=== PATIENT | female | born 2000 | race Caucasian/White ===

== ENCOUNTER 2021-11-22 13:51 | Emergency (ER) | payer OTHER, SELFPAY ==
[2021-11-22 13:52] VITALS: BP 96/46; PULSE 54; RESP 12; TEMP 35.8; O2SAT 95; BMI 23.2
--- NOTE | 2021-11-22 14:09 | EDS_ITS ---
HPI HPI - GI History of Present Illness Chief Complaint: Abd Pain Informant: patient Abdominal Pain/Flank Pain Onset: Today (JPTA, around 45 min ago) Context: Gradual Onset Timing: Continuous and Waxes and wanes Quality: - (pain) Location: Diffuse (across periumbilical abd) Current Severity: Mild Maximum Severity: Severe Worsened by: Nothing Relieved by: Nothing Nausea/Vomiting/Emesis GI Symptom: Negative for Nausea and Vomiting Diarrhea/Melena/Hematochezia GI Symptom: Positive for - (hard stool today); Negative for Diarrhea, Melena and Hematochezia Associated Symptoms Associated Symptoms: Negative for Dysuria, Frequency, Hematuria and Urgency Narrative Narrative: Patient was walking in a grocery store and started having periumbilical bilateral abdominal discomfort, felt like she needed to go to the bathroom. She went to have a bowel movement, it was hard, she had to bear down to get it out, subsequently after this, the pain started getting worse to the point of being in severe. She denies any near syncope but she felt like she needed to get down in the position. She did not fall, she denies any nausea or vomiting, she denies any bright red blood per rectum or mucus. No history of any GI problems, and no history of any abdominal surgeries but today she started for the first day oxybutynin because she has a history of urinary frequency and knows he can cause constipation. She states now her abdominal pain is barely there and very mild in the periumbilical area. She noticed no bulges/hernias at this time. PFSH PFSH Medical History no medical history no medical history Home Medications dicyclomine 20 mg PO Q8H PRN PRN #12 capsule 11/22/21 [Rx Last Taken Unknown] norgestimate-ethinyl estradiol [Sprintec (28)] 1 tab PO DAILY 11/22/21 [History Last Taken Unknown] oxybutynin chloride 5 mg PO DAILY 11/22/21 [History Last Taken Unknown] Allergy/AdvReac Type Severity Reaction Status Date / Time No Known Allergies Allergy Verified 11/22/21 13:52 Surgical History no surgical history no surgical history Social History Smoking Status: Never smoker ROS ROS ED Constitutional Constitutional ED: Denies chills or fever(s) Eyes Eyes: Denies change in vision or diplopia ENT ENT ED: Denies rhinorrhea or sore throat Cardiovascular Cardiovascular: Denies chest pain or palpitations Respiratory/Chest Respiratory/Chest: Denies cough or dyspnea Gastrointestinal Gastrointestinal: Reports as per HPI, abdominal pain and constipation; Denies diarrhea, hematochezia, melena, nausea or vomiting Genitourinary Genitourinary ED: Reports LMP (females 10-50) Details: Comment: (2 weeks ago usu ally regular) and urinary frequency; Denies dysuria, hematuria or vaginal bleeding Musculoskeletal Musculoskeletal: Denies back pain or neck pain Integumentary Denies abscess or rash Neurologic Neurologic: Denies headache(s), paresthesias or weakness Psychiatric Psychiatric: Denies anxiety or suicidal thoughts EXAM Physical Exam Const Vital Signs: 11/22/21 13:52 11/22/21 14:15 11/22/21 16:17 Temperature 96.5 F L Temperature Source Temporal Pulse Rate 54 L 48 L 65 Respiratory Rate 12 16 16 Blood Pressure 96/46 L 100/52 L 99/48 L Blood Pressure Mean 62 68 65 Pulse Ox 95 100 98 Oxygen Delivery Method Room Air Room Air Room Air Positive well nourished and well developed Constitutional Narrative: Well-appearing, conversive in full sentences, no distress General Appearance ED: well developed and NAD HEENT Reports moist mucous membranes normocephalic and atraumatic Eyes PERRL and EOMs intact bilaterally Neck full ROM and supple Resp normal respiratory effort and clear to auscultation bilaterally Cardio regular rate, regular rhythm and no murmurs Rate: Negative for bradycardia or tachycardic GI non-distended GI Narrative: Very mild periumbilical tenderness without any quadrant tenderness. No umbilical tenderness or hernia palpable. No guarding or rebound tenderness anywhere. Auscultation: normoactive bowel sounds Palpation: soft Speculum Exam - Vagina: Negative for vaginal bleeding Back/Spine no CVA tenderness General Back: other FROM Extremity normal to inspection General Extremety ED: Negative for edema, pulses abnormal or tenderness General Extremity: Negative for edema or pulses abnormal Neuro oriented x3, CN's II-XII intact bilaterally and no sensory deficits noted Sensorium / Orientation: awake and alert Motor Exam: strength 5/5 throughout Skin no rashes or lesions noted and no wounds MDM MDM MDM Narrative Medical decision making narrative: Basic labs were obtained in addition to lipase and liver enzymes, urine, and . Everything normal except for mild prerenal azotemia, which I think is incidental and not related. She was given some oral dicyclomine, her pain did not return and she was asymptomatic on reevaluation. Reexamined her abdomen which is completely nontender. I reassured her. I think this was some functional intestinal pain that would yield negative imaging if it were indicated, which I do not think it is. It could be related to constipation that could be a side effect of the new medication she just started. I gave her a prescription for dicyclomine to use as needed, and advised to follow-up with her doctor if she has recurrent episodes. They are comfortable with that plan we discussed reasons to return. Lab Data Attestation: I reviewed the patient's lab results. Labs: Laboratory Results - last 24 hr 11/22/21 11/22/21 11/22/21 14:25 14:25 14:30 WBC 7.9 RBC 4.07 L Hgb 12.4 Hct 37.6 MCV 92.4 MCH 30.5 MCHC 33.0 RDW Std Deviation 41.1 RDW Coeff of Marlys 12.1 Plt Count 252 MPV 9.7 Immature Gran % (Auto) 0.400 Neut % (Auto) 71.0 H Lymph % (Auto) 25.2 Elliott % (Auto) 2.7 Eos % (Auto) 0.3 Baso % (Auto) 0.4 Absolute Neuts (auto) 5.6 Absolute Lymphs (auto) 1.98 Nucleated RBC % 0 Sodium 137 Potassium 4.1 Chloride 104 Carbon Dioxide 26.0 Anion Gap 7 BUN 24 H Creatinine 0.94 Estim Creat Clear Calc 68.57 Est GFR (MDRD) Af Amer 97 Est GFR (MDRD) Non-Af 80 BUN/Creatinine Ratio 25.5 H Glucose 99 Calcium 9.0 Total Bilirubin 0.30 AST 35 ALT 28 Alkaline Phosphatase 41 L Total Protein 7.8 Albumin 3.7 Globulin 4.1 Albumin/Globulin Ratio 0.9 Lipase 146 Urine Color Yellow Urine Clarity Clear Urine pH 6.0 Ur Specific [place] 1.020 Urine Protein Negative Urine Glucose (UA) Normal Urine Ketones 5 H Urine Occult Blood Negative Urine Nitrite Negative Urine Bilirubin Negative Urine Urobilinogen Normal Ur Leukocyte Esterase Negative Urine RBC 0 SEEN Urine WBC 0 SEEN Ur Squamous Epith Cells 0 SEEN Urine Bacteria RARE Urine Mucus 0 SEEN Urine Test Negative Discharge Plan Triage Chief Complaint: Abd Pain ED Provider: Harley Jiménez Dx/Rx/DC Orders Clinical Impression: Diffuse abdominal pain, Constipation Instructions: ED Constipation (Adult) Prescriptions: New dicyclomine 10 MG capsule 20 mg PO Q8H PRN PRN (Reason: abdominal discomfort) Qty: 12 RF: 0 No Action norgestimate-ethinyl estradiol [Sprintec (28)] 0.25-35 mg-mcg tablet 1 tab PO DAILY RF: 0 oxybutynin chloride 5 mg tablet extended release 24hr 5 mg PO DAILY RF: 0 Primary Care Provider: Care Physician,No Primary Referrals: Doctor,Your [STAFF PHYSICIAN] - 3-5 Days if not improving Disposition Disposition: Home, Self Care
[2021-11-22] MEDS: Dicyclomine 10 MG Capsule 20 MG PO (14:13)
[2021-11-22 14:15] VITALS: BP 100/52; PULSE 48; RESP 16; O2SAT 100
[2021-11-22 14:46] LABS: Absolute Lymphocyte Count 1.98 X10^3/uL (0.83-4.51); Absolute Neutrophil Count 5.6 X10^3/uL (2.0-7.7); Basophil# 0.03 X10^3/uL; Basophil% 0.4 % (0-1); Eosinophil# 0.02 X10^3/uL; Eosinophils% 0.3 % (0-5); Hematocrit 37.6 % (37-47); Hemoglobin 12.4 g/dL (12.0-15.0); Lymphocyte # 1.98 X10^3/ul (0.83-4.51); Lymphocyte % 25.2 % (19-41); Mean Corpuscular Hgb 30.5 pg (27.0-32.0); Mean Corpuscular Volume 92.4 fL (81-99); Mean Platelet Vol. 9.7 fl (6.2-12.0); Monocyte# 0.21 X10^3/uL; Monocyte% 2.7 % (0-10); NRBC Flagged by Analyzer 0 % (0-5); Platelet Count 252 K/mm3 (150-450); RBC Distribution Width CV 12.1 % (11.6-14.6); RBC Distribution Width SD 41.1 fl (35.1-43.9); Red Blood Count 4.07 M/mm3 (4.2-5.4); White Blood Count 7.9 K/mm3 (4.4-11.0)
[2021-11-22 15:01] LABS: ALB/GLOB Ratio 0.9 RATIO (0.9-2.4); AST(SGOT) 35 U/L (15-37); Alanine Aminotransfer ALT/SGPT 28 U/L (13-56); Albumin, Serum 3.7 g/dL (3.2-5.0); Alkaline Phosphatase 41 U/L (45-117); Anion Gap 7 (5-15); BUN 24 mg/dL (7-18); BUN/Creat Ratio 25.5 RATIO (10-20); Chloride 104 mmol/L (98-107); Creatinine, Serum 0.94 mg/dL (0.55-1.02); EST Glomerular Filtration Rate 80 mL/min (>60); Est Glom Filt Rate - Afr Amer 97 mL/min (>60); Estimated Creatinine Clearance 68.57 ml/min; Globulin 4.1 g/dL (2.2-4.2); Glucose 99 mg/dL (74-106); Lipase 146 U/L (73-393); Potassium 4.1 mmol/L (3.5-5.1); Protein, Total 7.8 g/dL (6.4-8.2); Sodium Level 137 mmol/L (136-145)
[2021-11-22 15:15] LABS: Mucous, Urine 0 SEEN /hpf (<or=2+); Red Blood Cells-Urine 0 SEEN /hpf (0-5); Squamous Epithelial Cells - UA 0 SEEN /hpf (5-10); White Blood Cells 0 SEEN /hpf (0-5)
[2021-11-22 15:19] LABS: Color, Urine Yellow (Yellow); Glucose, Dipstick Normal (Normal); Ketone-Dipstick 5 mg/dl (Negative); Leukocyte Esterase-Dipstick Negative /ul (Negative); Nitrite-Dipstick Negative (Negative); Occult Blood-Urine Negative /ul (Negative); Protein-Dipstick Negative (Negative); Urine Bilirubin Dipstick Negative (Negative); Urine Clarity Clear (Clear); Urine Urobilinogen Normal (Normal)
[2021-11-22 15:36] LABS: Bacteria RARE /hpf (None Seen)
[2021-11-22 15:37] LABS: Internal QC Validated? YES +Cl - CLEAR BKGD; Pregnancy, Urine Negative Negative
[2021-11-22 16:17] VITALS: BP 99/48; PULSE 65; RESP 16; O2SAT 98
== END 2021-11-22 16:26 | disposition home or self-care (01) ==
PROVIDERS: Emergency Provider Emergency Medicine; Visit Provider Emergency Medicine
DX: R10.84 Generalized abdominal pain (principal); K59.00 Constipation, unspecified
CPT/HCPCS: 80053; 81001; 81025; 83690; 85025; 99283